=== PATIENT | female | born 1980 | race Caucasian/White ===

== ENCOUNTER 2017-07-05 14:48 | Emergency (ER) | END 2017-07-05 18:36 | disposition home or self-care (01) ==

== ENCOUNTER 2018-08-25 19:20 | Emergency (ER) | payer BC ==
[~2018-08-25] VITALS: Ht 160 cm; Wt 51.4 kg
[2018-08-25 19:22] VITALS: Ht 160 cm; Wt 51.4 kg
[2018-08-25] MEDS ORDERED: PHEN-538 PO (23:11)
[2018-08-25] MEDS ORDERED: NITR-58 PO (23:11)
[2018-08-25] MEDS ORDERED: PHENAZOPYRIDINE 100 MG TAB PO ONE (23:30)
[2018-08-25] MEDS ORDERED: NITROFURANTOIN MACROCRYS 100 MG CAP PO ONE (23:30)
[2018-08-25 23:45] VITALS: BP 141/78; PULSE 75; RESP 18
--- NOTE | 2018-08-25 23:53 | ERD ---
ER Documentation Chief Complaint Chief Complaint hematuria this morning with BARTLETT HPI 38 year-old [female] coming in today with Chief Complaint: Urinary symptoms History of Present Illness: Patient coming in today with report of hematuria since this morning; describes urine as with a pinkish color and with small hema ts. Associated symptoms includes suprapubic pain, discomfort, frequency, urgency since approximately 12 PM today; associated symptoms started before actual hematuria. Review of systems: All systems were reviewed and are negative except for what is indicated in the history of present illness. Past Medical History: [Negative for hypertension, diabetes or other medical problems] Social History: [Patient denies tobacco, alcohol, elicit drug use] Medications: [None] Allergies: [NKDA] Social Concerns: Denies ROS All systems reviewed and are negative except as per history of present illness. Medications Home Meds Active Scripts Phenazopyridine Hcl* (Pyridium*) 200 Mg Tab, 200 MG PO TID PRN for URINARY PAIN, #5 TAB Prov:JOE RAMÍREZ V CONCIERGE MANAGER 08/25/18 Nitrofurantoin Monohyd Macrocr* (Macrobid*) 100 Mg Capsr, 100 MG PO BID for 7 Days, #13 CAP Prov:JOE RAMÍREZ V CONCIERGE MANAGER 08/25/18 Allergies Allergies: Coded Allergies: No Known Allergy (Verified , NO MORE RASH WITH TYLENOL, 07/05/17) PMhx/Soc History of Surgery: Yes () Anesthesia Reaction: No Hx Neurological Disorder: No Hx Respiratory Disorders: No Hx Cardiac Disorders: No Hx Psychiatric Problems: Yes (anxiety) Hx Miscellaneous Medical Probl: No Hx Alcohol Use: No Hx Substance Use: No Hx Tobacco Use: No Smoking Status: Never smoker FmHx Family History: No diabetes, No coronary disease Physical Exam Vitals Vital Signs Date Temp Pulse Resp B/P (MAP) Pulse Ox O2 O2 Flow FiO2 Time Delivery Rate 08/25/18 98.9 75 18 141/78 99 Room Air 23:45 (99) 08/25/18 97.1 102 16 152/92 99 19:22 (112) Physical Exam Const: No acute distress Head: Atraumatic Eyes: Normal Conjunctiva ENT: Normal External Ears, Nose and Mouth. Neck: Full range of motion. No meningismus. Resp: Clear to auscultation bilaterally Cardio: Regular rate and rhythm, no murmurs Abd: Soft, non distended. Normal bowel sounds. Positive suprapubic tenderness. Skin: No petechiae or rashes Back: No midline or flank tenderness Ext: No cyanosis, or edema Neur: Awake and alert Psych: Normal Mood and Affect Results 24 hrs Laboratory Tests Test 08/25/18 21:11 08/25/18 21:27 Urine Color YELLOW Urine Clarity SLIGHTLY CLOUDY Urine pH 7.0 Urine Specific [place] 1.016 Urine Ketones NEGATIVE mg/dL Urine Nitrite NEGATIVE mg/dL Urine Bilirubin NEGATIVE mg/dL Urine Urobilinogen NEGATIVE mg/dL Urine Leukocyte Esterase 1+ Jose Manuel/ul Urine Microscopic RBC 16 /HPF Urine Microscopic WBC 83 /HPF Urine Hemoglobin 1+ mg/dL Urine Glucose NEGATIVE mg/dL Urine Total Protein NEGATIVE mg/dl POC Beta HCG, Qualitative NEGATIVE Current Medications Medications Dose Sig/Tash Start Time Status Last (Trade) Ordered Route PRN Stop Time Admin Dose Reason Admin 100 mg ONCE ONCE 08/25/18 DC 08/25/18 Nitrofurantoi PO 23:30 08/25/18 23:33 n 23:31 Macrocrystals (Macrodantin) 200 mg ONCE ONCE 08/25/18 DC 08/25/18 Phenazopyridi PO 23:30 08/25/18 23:30 ne HCl 23:31 (Pyridium) Procedures/MDM ED course includes a thorough examination and history. ED course includes labs; urinalysis and hCG urine. Low suspicion for life-threatening medical emergency or gastrointestinal/genitourinary emergency or sepsis or pyelonephritis. Otherwise healthy patient presenting with constellation of symptoms likely representing uncomplicated UTI as characterized by history, physical exam findings [lab findings]. Urine positive for leukocyte esterase, WBCs, RBCs, hemoglobin. Negative . Patient reassessment: Results given. Disposition given. Questions answered. Will give first dose of Macrobid and Pyridium before discharge. No respiratory distress, otherwise relatively well appearing and nontoxic. Patient educated on diagnoses, prescriptions [Pyridium and Macrobid], follow-up care, return precautions. Strict return precautions given for worsening condition; questions answered discharge. Disposition for discharge with followup in 2-3 days with PCP/clinic, recheck of urine and after antibiotics completed in approximately 7-10 days.. Departure Diagnosis: Primary Impression: UTI (urinary tract infection) Urinary tract infection type: acute cystitis Hematuria presence: with hematuria Qualified Codes: N30.01 - Acute cystitis with hematuria Condition: Stable Patient Instructions: Understanding Urinary Tract Infections (UTIs) Referrals: [facility] YOU HAVE RECEIVED A MEDICAL SCREENING EXAM AND THE RESULTS INDICATE THAT YOU DO NOT HAVE A CONDITION THAT REQUIRES URGENT TREATMENT IN THE EMERGENCY DEPARTMENT. FURTHER EVALUATION AND TREATMENT OF YOUR CONDITION CAN WAIT UNTIL YOU ARE SEEN IN YOUR DOCTORS OFFICE WITHIN THE NEXT 1-2 DAYS. IT IS YOUR RESPONSIBILITY TO MAKE AN APPOINTMENT FOR FOLOW-UP CARE. IF YOU HAVE A PRIMARY DOCTOR --you should call your primary doctor and schedule an appointment IF YOU DO NOT HAVE A PRIMARY DOCTOR YOU CAN CALL OUR PHYSICIAN REFERRAL HOTLINE AT IF YOU CAN NOT AFFORD TO SEE A PHYSICIAN YOU CAN CHOSE FROM THE FOLLOWING [facility] [address] [facility] [address] [facility] [address] [facility] [address] [facility] [address] [facility] [address] [address] [address] [facility] YOU HAVE RECEIVED A MEDICAL SCREENING EXAM AND THE RESULTS INDICATE THAT YOU DO NOT HAVE A CONDITION THAT REQUIRES URGENT TREATMENT IN THE EMERGENCY DEPARTMENT. FURTHER EVALUATION AND TREATMENT OF YOUR CONDITION CAN WAIT UNTIL YOU ARE SEEN IN YOUR DOCTORS OFFICE WITHIN THE NEXT 1-2 DAYS. IT IS YOUR RESPONSIBILITY TO MAKE AN APPOINTMENT FOR FOLOW-UP CARE. IF YOU HAVE A PRIMARY DOCTOR --you should call your primary doctor and schedule and appointment IF YOU DO NOT HAVE A PRIMARY DOCTOR YOU CAN CALL OUR PHYSICIAN REFERRAL HOTLINE AT . IF YOU CAN NOT AFFORD TO SEE A PHYSICIAN YOU CAN CHOSE FROM THE FOLLOWING [facility] INSTITUTIONS: [facility] [address] [place] [address] [facility] [address] [place] [address] [facility] [address] [place] [address] Additional Instructions: Call your primary care doctor TOMORROW for an appointment during the next 2-3 days.See the doctor sooner or return here if your condition worsens before your appointment time. Complete Macrobid for 7 days as prescribed for urinary tract infection. See your primary care doctor or clinic after the 7 days to ensure that infection is no longer present, they could do a retesting. The Pyridium for urinary discomfort is only to be taken for maximum of 5 doses, we have given you your first dose here at the ER. It will make her urine turn orange, this is a normal side effect. JOE RAMÍREZ NP Aug 25, 2018 23:53
== END 2018-08-25 23:46 | disposition home or self-care (01) ==
LOC: FTE 19:20
DX: N30.01 Acute cystitis with hematuria (principal)
CPT/HCPCS: 81001; 81025; 87086; 99283

== ENCOUNTER 2018-08-27 10:55 | Emergency (ER) | payer BC ==
[~2018-08-27] VITALS: Ht 167.6 cm; Wt 55.0 kg
[~2018-08-27 10:55] MED LIST: NITR-58 PO; PHEN-538 PO
[2018-08-27 10:59] VITALS: Ht 167.6 cm; Wt 55.0 kg
--- NOTE | 2018-08-27 11:37 | ERD ---
ER Documentation Chief Complaint Chief Complaint Complains of a HTN (Code green) BP normal in triage HPI Patient is a 38-year-old female with hypertension who presents with hypertension. The patient came in as a code green. She was working upstairs and felt palpitations while she was working. Her face felt numb. Her initial blood pressure was 145/114. She took her blood pressure again it was 184 systolic. Upon review of old medical records the patient has multiple visits to the ER for various complaints. Her primary doctor is Dr. Carson. ROS All systems reviewed and are negative except as per history of present illness. Medications Home Meds Active Scripts Phenazopyridine Hcl* (Pyridium*) 200 Mg Tab, 200 MG PO TID PRN for URINARY PAIN, #5 TAB Prov:JOE RAMÍREZ NP 08/25/18 Nitrofurantoin Monohyd Macrocr* (Macrobid*) 100 Mg Capsr, 100 MG PO BID for 7 Days, #13 CAP Prov:JOE RAMÍREZ V NUMERICAL CONTROL OPERATOR 08/25/18 Allergies Allergies: Coded Allergies: No Known Allergy (Verified , NO MORE RASH WITH TYLENOL, 07/05/17) PMhx/Soc History of Surgery: Yes () Anesthesia Reaction: No Hx Neurological Disorder: No Hx Respiratory Disorders: No Hx Cardiac Disorders: No Hx Psychiatric Problems: Yes (anxiety) Hx Miscellaneous Medical Probl: No Hx Alcohol Use: No Hx Substance Use: No Hx Tobacco Use: No FmHx Family History: No coronary disease Physical Exam Vitals Vital Signs Date Temp Pulse Resp B/P (MAP) Pulse Ox O2 O2 Flow FiO2 Time Delivery Rate 08/27/18 70 18 145/80 98 Room Air 12:29 (101) 08/27/18 98.6 96 20 150/88 98 10:59 (108) Physical Exam Const: No acute distress Head: Atraumatic Eyes: Normal Conjunctiva ENT: Normal External Ears, Nose and Mouth. Neck: Full range of motion. No meningismus. Resp: Clear to auscultation bilaterally Cardio: Regular rate and rhythm, no murmurs Abd: Soft, non tender, non distended. Normal bowel sounds Skin: No petechiae or rashes Back: No midline or flank tenderness Ext: No cyanosis, or edema Neur: Awake and alert, cranial nerves II through XII intact, strength is 5 out of 5 in all 4 extremities Psych: Normal Mood and Affect Procedures/MDM EKG read by me: Rate/Rhythm: Sinus tachycardia at a rate of 101 Intervals: Normal Impression: Sinus tachycardia without ischemia Departure Diagnosis: Primary Impression: Hypertension Hypertension type: essential hypertension Qualified Codes: I10 - Essential (primary) hypertension Additional Impression: Dizziness Condition: Fair Patient Instructions: High Blood Pressure (Hypertension), Dizziness, Unk Cause Referrals: [facility] Additional Instructions: Call your primary care doctor TOMORROW for an appointment during the next 1-2 days.See the doctor sooner or return here if your condition worsens before your appointment time. LITZY BARCLAY MD Aug 27, 2018 11:37
[2018-08-27 12:29] VITALS: BP 145/80; PULSE 70; RESP 18
== END 2018-08-27 12:30 | disposition home or self-care (01) ==
LOC: E/R 10:55
DX: I10 Essential (primary) hypertension (principal)
CPT/HCPCS: 93005